=== PATIENT | male | born 1955 ===

== ENCOUNTER 2017-06-23 10:46 | Emergency (ER) | payer SELFPAY ==
[~2017-06-23] VITALS: Ht 182.9 cm; Wt 117.0 kg
[2017-06-23 10:56] VITALS: BP 155/101; PULSE 61; RESP 18; TEMP 97.9; O2SAT 98
== END 2017-06-23 14:07 | disposition left against medical advice (07) ==
LOC: NED 10:46
DX: R07.81 Pleurodynia (principal)
CPT/HCPCS: 99281